=== PATIENT | male | born 1945 | race Caucasian/White ===

== ENCOUNTER → 2017-03-08 | Outpatient (CLI) | payer OTHER ==
[~2017-03-08] MED LIST: ADULT LOW STREN81 M2 PO; ADVAIR 250-501 EACH IH; ALTACE10 MG PO; ECOTRIN325 MG PO; HYDROCODON-ACE1 EAC2; INDOCIN50 MG PO; KAPIDEX60 MG PO; KEFLEX500 MG PO; LIDODERM 5% P1 PATCH; LIPITOR80 MG PO; LOPRESSOR25 MG PO; MOTRIN600 MG PO; MOTRIN800 MG PO; NAPROSYN500 MG PO; NASONEX17 GM NS; NITROQUICK0.4 MG SL; NORCO 5/3251 TABLET PO; PERCOCET 7.5-51 EACH PO; PREVACID30 MG PO; PROAIR HFA8.5 GM IH; RAMIPRIL5 MG PO; SPIRIVA1 INHALATI IH; TESTOSTERO200 MG/11; VALIUM5 MG PO; WAL-ZAN 150150 MG PO; ZANTAC150 M1 PO; ZETIA10 MG PO; ZYRTEC10 M1 PO
== END | disposition home or self-care (01) ==
LOC: NUC 09:36
DX: K76.89 Other specified diseases of liver (principal)
CPT/HCPCS: 78227; A9510; J2805

== ENCOUNTER 2017-05-08 11:55 | Emergency (ER) | payer OTHER ==
[~2017-05-08] VITALS: Ht 180.3 cm; Wt 99.1 kg
[2017-05-08] MEDS ORDERED: UNABLE TO OBTAIN (14:07)
[2017-05-08 14:08] VITALS: BP 140/62
== END 2017-05-08 14:10 | disposition home or self-care (01) ==
LOC: EME 11:55
PROC: 0HQFXZZ Repair Right Hand Skin, External Approach (ICD-10-PCS; principal; 2017-05-08)
DX: S61.411A Laceration without foreign body of right hand, initial encounter (principal); W28.XXXA Contact with powered lawn mower, initial encounter
CPT/HCPCS: 73130; 99281; 99284

== ENCOUNTER 2017-05-17 10:24 | Emergency (ER) | payer OTHER ==
[~2017-05-17] VITALS: Ht 180.3 cm; Wt 98.7 kg
[~2017-05-17 10:24] MED LIST changes: +UNABLE TO OBTAIN
[2017-05-17 11:26] VITALS: BP 126/68
== END 2017-05-17 11:27 | disposition home or self-care (01) ==
LOC: EME 10:24
DX: S61.011D Laceration without foreign body of right thumb without damage to nail, subsequent encounter (principal); W45.8XXD Other foreign body or object entering through skin, subsequent encounter; Z48.02 Encounter for removal of sutures
CPT/HCPCS: 99281; 99284

== ENCOUNTER 2017-09-18 16:37 | Emergency (ER) | payer OTHER ==
[~2017-09-18] VITALS: Ht 180.3 cm; Wt 94.5 kg
[2017-09-18 17:27] LABS: HEMATOCRIT 43.4 % (38.0-50.0); MCH 30.6 PG (29.0-34.0); MCHC 34.1 G/DL (30.0-36.0); MCV 89.9 FL (86-99); MEAN PLAT.VOLUME 9.7 uM^3 (9.0-12.4); PLATELET COUNT 230 K/uL (156-360); RBC DIS.WIDTH-CV 13.2 % (11.8-14.6); RBC DIS.WIDTH-SD 43.4 % (39-53); RED BLOOD COUNT 4.83 M/uL (4.00-5.50); WHITE BLOOD COUNT 11.7 K/uL (4.1-10.2)
[2017-09-18 17:39] LABS: CHLORIDE 100 mEq/L (99-109); POTASSIUM 3.8 mEq/L (3.7-5.4); SODIUM 136 mEq/L (136-147)
[2017-09-18 17:42] LABS: GLUCOSE 97 mg/dL (70-99)
[2017-09-18 17:43] LABS: ANION GAP 14 MEQ/L (2-14)
[2017-09-18 17:45] LABS: ALKALINE PHOSPHATASE 269 IU/L (3-129); GFR ESTIMATE (CALCULATED) 58 mL/min/
[2017-09-18 17:46] LABS: UREA NITROGEN (BUN) 21 mg/dL (9-23)
[2017-09-18] MEDS ORDERED: VENTOLIN HFA18 GM IH (19:13)
[2017-09-18 19:59] VITALS: BP 129/73
== END 2017-09-18 20:02 | disposition home or self-care (01) ==
LOC: EME 16:37
PROVIDERS: Nurse Practitioner Family
DX: R06.1 Stridor (principal); R79.89 Other specified abnormal findings of blood chemistry; Z98.890 Other specified postprocedural states; Z98.1 Arthrodesis status; E78.5 Hyperlipidemia, unspecified; J44.9 Chronic obstructive pulmonary disease, unspecified; I10 Essential (primary) hypertension; K21.9 Gastro-esophageal reflux disease without esophagitis; M10.9 Gout, unspecified; Z88.0 Allergy status to penicillin; Z88.1 Allergy status to other antibiotic agents
CPT/HCPCS: 80053; 83605; 85027; 87040; 87502; 94640; 99281; 99285

== ENCOUNTER 2018-03-22 07:20 | Emergency (ER) | payer OTHER ==
[~2018-03-22] VITALS: Ht 177.8 cm; Wt 121.3 kg
[~2018-03-22 07:20] MED LIST changes: +VENTOLIN HFA18 GM IH
[2018-03-22 07:59] LABS: BASOPHIL (%) 0.3 % (0-1); EOSINOPHIL (%) 1.6 % (0-5); EOSINOPHIL COUNT 0.2 K/uL (0-0.3); HEMATOCRIT 45.9 % (38.0-50.0); HEMOGLOBIN 15.6 G/DL (12.5-16.6); IMMATURE GRANULOCYTE (%) 0.8 % (0.0-0.7); LYMPHOCYTE (%) 27.3 % (15-42); LYMPHOCYTE COUNT 3.6 K/uL (1.0-2.8); MCH 30.8 PG (29.0-34.0); MCV 90.5 FL (86-99); MONOCYTE (%) 5.8 % (3-12); MONOCYTE COUNT 0.8 K/uL (0-0.8); NEUTROPHIL (%) 64.2 % (45-76); NEUTROPHIL COUNT 8.4 K/uL (1.8-6.4); PLATELET COUNT 222 K/uL (156-360); RBC DIS.WIDTH-CV 14.5 % (11.8-14.6); RBC DIS.WIDTH-SD 47.8 % (39-53); RED BLOOD COUNT 5.07 M/uL (4.00-5.50)
[2018-03-22 08:11] LABS: ALBUMIN 3.5 g/dL (3.2-4.8); CHLORIDE 105 mEq/L (99-109); POTASSIUM 3.6 mEq/L (3.7-5.4); PTT 29.2 SEC (25-37); SODIUM 139 mEq/L (136-147)
[2018-03-22 08:14] LABS: GLUCOSE 152 mg/dL (70-99)
[2018-03-22 08:17] LABS: ALKALINE PHOSPHATASE 107 IU/L (3-129); GFR ESTIMATE (CALCULATED) > 59 mL/min/ (58.99-99999)
[2018-03-22 08:18] LABS: UREA NITROGEN (BUN) 17 mg/dL (9-23)
[2018-03-22 08:19] LABS: AST (GOT) 30 IU/L (2-34)
[2018-03-22 08:20] LABS: ALT (GPT) 69 IU/L (3-49)
[2018-03-22 08:21] LABS: TROP-I INTERPRETATION NEGATIVE; TROPONIN-I 0.02 ng/mL (0.0-0.30)
[2018-03-22] MEDS ORDERED: CITRATE OF MAG296 ML PO (11:25)
[2018-03-22 11:57] VITALS: BP 113/67
== END 2018-03-22 12:03 | disposition home or self-care (01) ==
LOC: EME → EDBD 07:29 → EME 07:29
PROVIDERS: Emergency Medicine
DX: R06.02 Shortness of breath (principal); L29.9 Pruritus, unspecified; R10.9 Unspecified abdominal pain; T39.395A Adverse effect of other nonsteroidal anti-inflammatory drugs [NSAID], initial encounter; K59.00 Constipation, unspecified; J44.9 Chronic obstructive pulmonary disease, unspecified; K21.9 Gastro-esophageal reflux disease without esophagitis; E78.5 Hyperlipidemia, unspecified; I10 Essential (primary) hypertension; Z87.442 Personal history of urinary calculi; Z90.49 Acquired absence of other specified parts of digestive tract; Z98.1 Arthrodesis status; Z88.0 Allergy status to penicillin; Z88.8 Allergy status to other drugs, medicaments and biological substances
CPT/HCPCS: 71045; 74177; 80053; 83880; 84484; 85025; 85610; 85730; 93005; 94640; 99281; 99285; J1200; J2405; J2930; S0028